=== PATIENT | male | born 1965 | race Caucasian/White ===

== ENCOUNTER 2021-05-22 14:11 | Emergency (ER) | payer OTHER ==
[~2021-05-22] VITALS: Ht 188 cm; Wt 81.8 kg
[2021-05-22 14:43] VITALS: BP 172/109
== END 2021-05-22 15:12 | disposition home or self-care (01) ==
LOC: ER 14:13
DX: H11.32 Conjunctival hemorrhage, left eye (principal); H57.12 Ocular pain, left eye
CPT/HCPCS: 99282